=== PATIENT | male | born 1985 | race Caucasian/White ===

== ENCOUNTER 2022-10-20 08:44 | Emergency (ER) | payer OTHER ==
[2022-10-20 08:53] VITALS: BP 153/100; PULSE 67; RESP 18; TEMP 98.2; BMI 32.1
[2022-10-20] MEDS ORDERED: ACETAMINOPHEN 1000 MG/100 ML BAG IVPB ONE (09:02)
[2022-10-20] MEDS ORDERED: MAG HYDROX/AL HYDROX/SIMETH 30 ML UNIT-DOSE CUP PO ONE (09:02)
[2022-10-20] MEDS ORDERED: FAMOTIDINE 20 MG/50 ML IVPB 20 MG/50 ML MG IVPB ONE ×2 (09:02→09:16)
[2022-10-20] MEDS ORDERED: SODIUM CHLORIDE 1,000 ML IV STA (09:02)
[2022-10-20] MEDS ORDERED: MAG HYDROX/AL HYDROX/SIMETH 30 ML UNIT-DOSE CUP ONE (09:16)
[2022-10-20] MEDS ORDERED: ACETAMINOPHEN INJECTION 100 ML IVPB ONE (09:16)
[2022-10-20 09:32] LABS: HEMATOCRIT 44.7 % (35.4-49); HEMOGLOBIN 15.9 G/dL (11.7-16.9); MCHC 35.5 g/dl (32.0-35.9); MEAN CELL VOLUME 81.7 fl (80-96); MEAN PLT VOLUME 8.6 fl (7.5-11.1); PLATELET COUNT 240.4 10^3/uL (134-434); RBC 5.47 10^6/uL (4.00-5.60); RDW 15.2 % (11.9-15.9); WHITE BLOOD COUNT 5.5 10^3/uL (4.0-10.8)
[2022-10-20 09:34] LABS: CALCIUM 9.2 mg/dl (8.5-10)
[2022-10-20 09:37] LABS: ALBUMIN 4.3 g/dl (3.4-5.0); BILIRUBIN,TOTAL 0.8 mg/dl (0.2-1); CREATININE 0.8 mg/dl (0.55-1.3); TOT PROT 7.7 g/dl (6.4-8.2)
== END 2022-10-20 11:13 | disposition home or self-care (01) ==
LOC: FER 08:44
PROC: 3E033GC Introduction of Other Therapeutic Substance into Peripheral Vein, Percutaneous Approach (ICD-10-PCS; principal; 2022-10-20)
PROC: 3E033GC Introduction of Other Therapeutic Substance into Peripheral Vein, Percutaneous Approach (ICD-10-PCS; 2022-10-20)
DX: R10.13 Epigastric pain (principal)
CPT/HCPCS: 36415; 76700-TC; 80053; 83690; 85027; 99284-25